=== PATIENT | female | born 1985 | race Native Hawaiian/Other Pacific Islander ===

== ENCOUNTER 2018-02-17 11:44 | Emergency (ER) | payer BC ==
[~2018-02-17] VITALS: Ht 165.1 cm; Wt 99.8 kg
[~2018-02-17 11:44] MED LIST: ADIPEX PO; HYDR25TA60 PO; TRIAMCINOLON0.12 TOP
[2018-02-17 12:00] VITALS: TEMP 98
[2018-02-17 15:21] LABS: PLATELET COUNT 283 K/uL (152-353)
[2018-02-17 15:23] LABS: POTASSIUM 3.7 mmol/L (3.6-5.2)
[2018-02-17 16:00] VITALS: BP 155/82
== END 2018-02-17 16:44 | disposition home or self-care (01) ==
LOC: ED 11:44
PROVIDERS: Emergency Medicine
DX: N20.0 Calculus of kidney (principal); N23 Unspecified renal colic
CPT/HCPCS: 80053; 81000; 85027; 96374; 96375; 96376; 99284; J2175; J2405

== ENCOUNTER 2019-07-28 10:20 | Emergency (ER) | payer BC ==
[~2019-07-28] VITALS: Ht 160 cm; Wt 104.3 kg
[2019-07-28 10:29] VITALS: TEMP 99
[2019-07-28 11:10] LABS: PLATELET COUNT 301 K/uL (152-353)
[2019-07-28 11:33] LABS: POTASSIUM 3.9 mmol/L (3.6-5.2); SODIUM 139 mmol/L (136-145)
[2019-07-28 12:03] VITALS: BP 113/60
== END 2019-07-28 12:05 | disposition home or self-care (01) ==
LOC: ED 10:20
PROVIDERS: Emergency Medicine
DX: R07.89 Other chest pain (principal)
CPT/HCPCS: 80053; 82550; 82553; 84484; 85027; 85379; 93005; 99283

== ENCOUNTER 2021-01-21 17:03 | Emergency (ER) | payer BC ==
[~2021-01-21] VITALS: Ht 160 cm; Wt 104.3 kg
[2021-01-21 19:25] VITALS: BP 125/78; TEMP 99.1
== END 2021-01-21 19:28 | disposition home or self-care (01) ==
LOC: ED 17:03
DX: M51.36 Other intervertebral disc degeneration, lumbar region (principal); M51.26 Other intervertebral disc displacement, lumbar region
CPT/HCPCS: 81000; 96372; 99283; J1885

== ENCOUNTER 2021-01-24 10:45 | Outpatient (CLI) | payer BC | END 2021-01-24 22:11 | disposition home or self-care (01) | LOC: US 10:45 | PROVIDERS: ATTEND Nurse Practitioner Family | DX: R10.9 Unspecified abdominal pain (principal) ==

== ENCOUNTER 2021-07-10 08:54 | Outpatient (CLI) | payer BC, OTHER ==
[~2021-07-10] VITALS: Ht 152.4 cm; Wt 104.3 kg
== END 2021-07-10 19:28 | disposition home or self-care (01) ==
LOC: INF 08:54
PROVIDERS: ATTEND Family Medicine
DX: Z23 Encounter for immunization (principal); U07.1 COVID-19
CPT/HCPCS: 96365; M0244

== ENCOUNTER 2023-05-30 17:15 | Emergency (ER) | payer BC ==
[~2023-05-30] VITALS: Ht 152.4 cm; Wt 104.3 kg
[2023-05-30 17:56] VITALS: BP 128/83; TEMP 98.3
== END 2023-05-30 17:58 | disposition home or self-care (01) ==
LOC: ED 17:15
DX: S83.92XA Sprain of unspecified site of left knee, initial encounter (principal); S86.912A Strain of unspecified muscle(s) and tendon(s) at lower leg level, left leg, initial encounter; X58.XXXA Exposure to other specified factors, initial encounter
CPT/HCPCS: 96372; 99282; J1100

== ENCOUNTER 2023-06-26 12:59 | Outpatient (CLI) | payer BC | END 2023-06-26 20:20 | disposition home or self-care (01) | LOC: RAD 12:59 | PROVIDERS: ATTEND Physician Assistant | DX: M25.562 Pain in left knee (principal) ==